=== PATIENT | male | born 1960 | race Two or more races ===

== ENCOUNTER 2018-05-25 10:20 | Outpatient (CLI) | payer OTHER | END 2018-05-25 10:32 | disposition home or self-care (01) | LOC: NUCLEAR 10:20 | DX: M25.552 Pain in left hip (principal) | CPT/HCPCS: 78315; 78306; A9503 ==

== ENCOUNTER → 2022-05-07 | Outpatient (CLI) | payer OTHER | END | disposition home or self-care (01) | LOC: RAD 12:43 | PROVIDERS: ATTEND Orthopaedic Surgery | DX: M25.561 Pain in right knee (principal) ==